=== PATIENT | male | born 1990 | race Caucasian/White ===

== ENCOUNTER 2017-08-07 01:05 | Emergency (ER) | payer BC ==
[~2017-08-07] VITALS: Ht 185.4 cm; Wt 108.9 kg
[~2017-08-07 01:05] MED LIST: CRUTCH2 XX; Flomax0.4 MG PO; HYDACE5 PO; IBUP600 PO; NAPR500 PO; NAPR550 PO; OXYACE5T PO; Percocet 5-3251 EACH PO; RXHYDACE PO; RXNAPNA550 PO; TAMS.4ER PO; TRAM50 PO; Veetids 500500 MG PO; Zofran Odt4 MG SL; Zofran4 MG PO
[2017-08-07] MEDS ORDERED: NAPR550 PO (01:25)
[2017-08-07] MEDS ORDERED: PERIDEX15 ML MM (01:25)
[2017-08-07] MEDS ORDERED: Amoxicillin500 MG PO (01:25)
== END 2017-08-07 01:45 | disposition home or self-care (01) ==
LOC: ER 01:05
DX: K08.89 Other specified disorders of teeth and supporting structures (principal); Z79.2 Long term (current) use of antibiotics
CPT/HCPCS: 96372; 99283; J1885